=== PATIENT | male | born 1965 | race African-American/Black ===

== ENCOUNTER 2016-12-10 23:47 | Emergency (ER) | payer OTHER ==
[~2016-12-10] VITALS: Ht 177.8 cm; Wt 79.4 kg
[2016-12-10 23:47] VITALS: BP 165/99
--- NOTE | 2016-12-10 23:47 | NUR ---
PT TO ER [facility] AND [employer] FOR SUICIDAL IDEATION. PT STATES IS HEARING VOICES TELLING HIM TO HURT HIMSELF. NO IMMEDIATE SIGNS OF DISTRESS NOTED. PT VITAL SIGNS NORMAL. PT A/OX3. PT TO ER BED 12, CHANGED INTO GOWN AND CONNECTED TO MONITOR. SUICIDE PRECAUTIONS IMPLEMENTED. WILL CONT TO MONITOR PT.
--- NOTE | 2016-12-11 00:11 | NUR ---
CONTROL ELECTRICIAN AT BEDSIDE FOR BLOOD DRAW.
[2016-12-11 00:20] LABS: BASOPHILS % (AUTO) 0.5 % (0.0-2.0); EOSINOPHILS # (AUTO) 0.1 /CMM (0.0-0.7); EOSINOPHILS % (AUTO) 1.9 % (0.0-6.0); HEMATOCRIT 45 % (39-51); HEMOGLOBIN 14.4 g/dL (13.5-17.5); LYMPHOCYTES % (AUTO) 27.6 % (20.0-44.0); MEAN CORPUSCULAR HEMOGLOBIN 27 PG (26.0-33.0); MEAN CORPUSCULAR HGB CONC 32 g/dl (31.0-36.0); MEAN CORPUSCULAR VOLUME 86 fL (80-96); MONOCYTES # (AUTO) 0.6 /CMM (0.1-1.30); MONOCYTES % (AUTO) 8.5 % (2.0-12.0); NEUTROPHILS # (AUTO) 4.5 /CMM (1.8-8.9); NEUTROPHILS % (AUTO) 61.5 % (43.0-81.0); PLATELET COUNT (AUTO) 317 /CMM (150-450); RDW COEFFICIENT OF VARIATION 12.6 (11.5-15.0); RED BLOOD CELL COUNT(AUTO) 5.25 MIL/uL (4.5-6.0); WHITE BLOOD COUNT (AUTO) 7.3 K/uL (4.3-11.0)
[2016-12-11 00:37] LABS: ALANINE AMINOTRANSFERASE 28 U/L (12-78); ALBUMIN 3.9 g/dL (3.4-5.0); ALCOHOL, BLOOD < 3 mg/dL (0-0); ALKALINE PHOSPHATASE 93 U/L (46-116); ASPARTATE AMINOTRANSFERASE 15 U/L (15-37); BILIRUBIN,DIRECT 0.2 mg/dL (0.0-0.2); BILIRUBIN,TOTAL 0.9 mg/dL (0.2-1.0); CALCIUM, SERUM 8.8 mg/dL (8.5-10.1); CARBON DIOXIDE 31 mmol/L (21-32); CHLORIDE 101 mmol/L (98-107); CREATININE 0.8 mg/dL (0.6-1.3); POTASSIUM 4.1 mmol/L (3.5-5.1); SODIUM SERUM 137 mmol/L (136-145); TOTAL PROTEIN, SERUM 7.2 g/dL (6.4-8.2); UREA NITROGEN, BLOOD 12 mg/dL (7-18)
[2016-12-11 00:41] LABS: ACETAMINOPHEN 0 ug/ml (10-30); SALICYLATE 0.8 mg/dL (2.8-20.0)
[2016-12-11 00:42] LABS: GLUCOSE 387 mg/dL (74-106)
[2016-12-11 00:44] LABS: THYROID STIMULATING HORMONE 1.249 uIU/mL (0.358-3.74)
[2016-12-11] MEDS ORDERED: INSULIN REGULAR, HUMAN 100 UNIT/ML 10 ML VIAL ONE (00:55)
[2016-12-11] MEDS ORDERED: INSULIN REGULAR, HUMAN 100 UNIT/ML 10 ML VIAL SQ ONE (01:00)
[2016-12-11] MEDS ORDERED: OLANZAPINE 5 MG TABLET PO ONE (01:00)
[2016-12-11] MEDS ORDERED: ARIPIPRAZOLE 5 MG TABLET PO ONE (01:00)
[2016-12-11] MEDS ORDERED: OLANZAPINE 5 MG TABLET ONE (01:13)
--- NOTE | 2016-12-11 02:00 | NUR ---
PT SLEEPING IN GURNEY. PT EASILY AROUSABLE. WILL CONT TO MONITOR PT.
--- NOTE | 2016-12-11 06:08 | NUR ---
CALLED [facility], DISCHARGE PLANNER. VM LEFT.
--- NOTE | 2016-12-11 12:08 | NUR ---
PT RESTING COMFORTABLY, NO ACUTE S/S OF DISTRESS NOTED AT THIS TIME. WILL CONTINUE WITH PLAN TO EVALUATE ONCE AWAKE
--- NOTE | 2016-12-11 21:34 | NUR ---
PT ACCEPTED SO DR MARY LEZAMA. [phone]
--- NOTE | 2016-12-11 22:00 | NUR ---
REPORT GIVEN TO ELAN HILLMAN FOR CONTINUATION OF CARE.
--- NOTE | 2016-12-11 22:18 | NUR ---
[facility] AT BEDSIDE FOR TRANSPORT TO [facility].
== END 2016-12-11 22:36 ==
LOC: ER 23:48
DX: F32.9 Major depressive disorder, single episode, unspecified (principal); F29 Unspecified psychosis not due to a substance or known physiological condition; F15.10 Other stimulant abuse, uncomplicated; E11.65 Type 2 diabetes mellitus with hyperglycemia; Z79.4 Long term (current) use of insulin
CPT/HCPCS: 36415; 80048-TC; 80076-TC; 80305; 82962-TC; 84443-TC; 85025-TC; A4606; G0480; J1815; Z7610